=== PATIENT | female | born 1985 | race Two or more races ===

== ENCOUNTER 2018-02-16 10:45 | Emergency (ER) | payer OTHER ==
[2018-02-16 10:51] VITALS: BP 125/85
--- NOTE | 2018-02-16 11:10 | EDPHY ---
H & P Time Seen by Provider: 02/16/18 10:57 HPI/ROS: CHIEF COMPLAINT: Left scapular pain x2 days HISTORY OF PRESENT ILLNESS: 32-year-old female generally healthy, nonsmoker, no drug use, states that she woke yesterday morning with complaints of left scapular pain. States that the way she slept, she slipped other pillows in an awkward way so that she was twisted at the waist when she slept and woke with this reproducible pain. She has not taken any cpzj-bht-[id number] remedies or analgesics for this. She has reproducible pain with palpation and movement. She denies: Chest pain, dyspnea, syncope or near syncope, trauma or drug use, malignancy, immobilization. PRIMARY CARE PROVIDER: REVIEW OF SYSTEMS: A ten point review of systems was performed and is negative with the exception of the items mentioned in the HPI PAST MEDICAL & SURGICAL HISTORY: No pertinent medical or surgical history SOCIAL HISTORY: Nonsmoker. . No drug use. PHYSICAL EXAM (Prior to examination, patient consented to physical exam, hands were washed and my usual and customary physical exam procedures followed) 1) GENERAL: Well-developed, well-nourished, alert and oriented. Appears to be in no acute distress. Smiling, shakes my hand pleasant. 2) HEAD: Normocephalic, atraumatic 3) HEENT: Pupils equal, round, reactive to light bilaterally. Sclera anicteric. Nasopharynx, oropharynx, clear, no lesions. 4) NECK: Full range of motion, no meningeal signs. 5) LUNGS: Clear auscultation bilaterally, no wheezes, no rhonchi, no retractions. 6) HEART: Regular rate and rhythm, no murmur, no heave, no gallop. 7) ABDOMEN: No guarding, no rebound, no focal tenderness, negative McBurney's, negative Pineda's, negative Rovsing's, negative peritoneal sign, 8) MUSCULOSKELETAL: Moving all extremities, no focal areas of tenderness, no obvious trauma. No peripheral edema or discoloration. 9) BACK: Reproducible tenderness to palpation left subscapular region. No lesions. Also reproducible with range of motion. No CVA tenderness, no midline vertebral tenderness, no fluctuance, no step-off, no obvious trauma, no visual or palpable abnormality. 10) SKIN: No rash, no petechiae. 11) Psychiatric: Patient is oriented X 3, there is no agitation. DIFFERENTIAL DIAGNOSIS: In no particular order including but not limited to muscle strain, PE, pneumothorax Smoking Status: Never smoked Constitutional: Initial Vital Signs Temperature (C) 37.4 C 02/16/18 10:48 Heart Rate 96 02/16/18 10:48 Respiratory Rate 16 02/16/18 10:48 Blood Pressure 125/85 H 02/16/18 10:48 O2 Sat (%) 96 02/16/18 10:48 O2 Delivery Mode Room Air Allergies/Adverse Reactions: No Known Allergies Allergy (Unverified 02/16/18 10:48) Home Medications: Medication Instructions Recorded NK [No Known Home Meds] 02/16/18 MDM/Departure - [facility] ED Course/Re-evaluation: I think this patient's symptoms are more than likely secondary to acute muscular etiology given that she has reproducible pain with palpation, reproducible pain with range of motion, notes that she slept in an odd fashion, notably twisted at the waist. I think that other potential pathology such as PE , VA, aortic dissection, are less than likely in this patient as she is low risk for these, negative perc score. She has not taken any [id number] analgesics. I recommended ibuprofen and Tylenol provided my usual and customary NSAID precautions and instructions. Provided my usual and customary discharge precautions instructions, return to the ER should she develop new or worsening symptoms or any other symptoms that concern her. She feels comfortable being discharged. Care of patient under supervision of secondary supervising physician Dr Felipe . - Depart Disposition: Home, Routine, Self-Care Clinical Impression: Muscle strain of left upper back Qualifiers: Encounter type: initial encounter Qualified Code(s): S29.012A - Strain of muscle and tendon of back wall of thorax, initial encounter Condition: Good Instructions: Muscle Strain (ED) Additional Instructions: Return to the ER immediately if you develop chest pain, shortness of breath, feeling the will pass out or any other symptoms that concern you. Pediatric Fever & Pain Control: For fever/pain control we recommend: Acetaminophen (Tylenol) 650mg every 4 to 6 hours as needed Ibuprofen (Advil, Motrin) 600mg every 6 to 8 hours as needed. *Acetaminophen and Ibuprofen may be given in alternating doses or at the same time for high fever. (NOTE TIME DIFFERENCES) NEVER GIVE ASPIRIN TO AN INFANT OR CHILD. WARNING: THESE MEDICATIONS COME IN DIFFERENT STRENGTHS FOR INFANTS AND CHILDREN. BEFORE GIVING YOUR CHILD A DOSE OF MEDICATION, MAKE SURE THAT YOU ARE GIVING THE APPROPRIATE AMOUNT. Measurements: 1 teaspoon=5ml 1/2 teaspoon =2.5ml Referrals: Aleida Whaley MD [Primary Care Provider] - 1-2 days without fail
== END 2018-02-16 11:17 | disposition home or self-care (01) ==
DX: S29.012A Strain of muscle and tendon of back wall of thorax, initial encounter (principal); X50.9XXA Other and unspecified overexertion or strenuous movements or postures, initial encounter